=== PATIENT | female | born 1965 | race Caucasian/White ===

== ENCOUNTER 2019-09-09 11:05 | Emergency (ER) | payer OTHER ==
[2019-09-09 11:22] VITALS: BP 113/71; PULSE 69; TEMP 98.5; BMI 23.0
--- NOTE | 2019-09-09 13:24 | PDOC ---
History of Present Illness - General Chief Complaint: Back Pain Stated Complaint: FACIAL NUMBNESS Time Seen by Provider: 09/09/19 12:10 History Source: Patient Exam Limitations: No Limitations - History of Present Illness Initial Comments: 09/09/19 13:36 53-year-old female denies past medical history presents complaining of right- sided facial numbness and "pulling sensation to right side of face "after receiving anesthesia for a root canal at approximately 9:30 AM today. Patient denies headache, weakness, nausea, vomiting, pain or any other complaint. ROS: GENERAL/CONSTITUTIONAL: No fever, chills, weakness, dizziness HEAD, EYES, EARS, NOSE AND THROAT: No changes in vision, No ear pain or discharge, No sore throat CARDIOVASCULAR: No chest pain RESPIRATORY: No shortness of breath or cough GASTROINTESTINAL: No pain, nausea, vomiting, diarrhea or constipation GENITOURINARY: No dysuria MUSCULOSKELETAL: No neck or back pain SKIN: No rash NEUROLOGIC: Right-sided facial numbness, no headache, vertigo, loss of consciousness, or loss of sensation PE: GENERAL: well-appearing, NAD HEAD: NCAT, minimal swelling to right side of face, no erythema, no warmth or tenderness to palpation EYES: Pupils equal, round and reactive to light, sclera anicteric, conjunctiva clear ENT: Normal bilateral ear canal, pharynx: no erythema, no exudate, uvula midline NECK: supple CHEST: nontender RESP: clear, no w/r/r CARDIO: rrr, no m/g/r ABD: +BS, soft, nontender, non distended BACK: no midline spinal ttp, no CVAT EXTREMITIES: Normal range of motion, no edema NEUROLOGICAL: CN intact, 4/5 sensation to right side of face, normal speech, normal gait SKIN: Warm, Dry Is this a multiple visit Asthma Patient?: No Past History - Past Medical History Allergies/Adverse Reactions: Allergies Allergy/AdvReac Type Severity Reaction Status Date / Time No Known Allergies Allergy Verified 09/09/19 12:57 CVA: No COPD: No - Immunization History Immunization Up to Date: Yes - Psycho Social/Smoking Cessation Hx Smoking History: Never smoked Information on smoking cessation initiated: No Hx Alcohol Use: No Drug/Substance Use Hx: No *Physical Exam - Vital Signs Last Vital Signs Temp Pulse Resp BP Pulse Ox 98.5 F 69 17 113/71 100 09/09/19 11:13 09/09/19 11:13 09/09/19 11:13 09/09/19 11:13 09/09/19 11:13 Medical Decision Making - Medical Decision Making 09/09/19 13:43 53-year-old female with no past medical history presents complaining of right- sided facial numbness and pulling sensation after receiving anesthesia for a root canal at approximately 9:30 AM today. Neurologically intact Reassurance provided Instructed patient to follow-up with dentist within 1 to 2 days Strict return precautions discussed Discharge - Discharge Information Problems reviewed: Yes Clinical Impression/Diagnosis: Facial numbness Condition: Stable Disposition: HOME - Admission No - Follow up/Referral - Patient Discharge Instructions Additional Instructions: Follow-up with your dentist within 1 to 2 days If you develop a headache, nausea, vomiting, fever, difficulty speaking or worsening symptoms return to the ED - Post Discharge Activity
== END 2019-09-09 13:47 | disposition home or self-care (01) ==
LOC: JERFT 11:05
DX: R20.0 Anesthesia of skin (principal); G97.82 Other postprocedural complications and disorders of nervous system
CPT/HCPCS: 99281-25